=== PATIENT | male | born 1995 | race Caucasian/White ===

== ENCOUNTER 2024-11-19 21:37 | Emergency (ER) | payer OTHER, SELFPAY ==
--- NOTE | ~2024-11-19 | CT_ITS ---
CLINICAL INDICATION: Right lower quadrant pain COMPARISON: None. TECHNIQUE: Multiple contiguous axial images of the abdomen and pelvis were performed following the ad ministration of with 100 mL Omnipaque-350 intravenous contrast The dose-length product (DLP) was 1675.88 mGy-cm. Automated exposure control and iterative reconstruction technique were employed. FINDINGS/OBSERVATIONS: Visualized lower thorax: The bilateral lung bases are clear. The heart is of normal size, without pericardial effusion. Small hiatal hernia is present. Liver: The liver demonstrates homogeneously decreased enhancement, consistent with fatty infiltration and is not enlarged. Gallbladder and biliary system: The gallbladder is only minimally distended, and otherwise unremarkable. Pancreas: The pancreas enhances homogeneously without ductal dilatation. Spleen: The spleen enhances homogeneously and is not enlarged. Kidneys: Mild right-sided hydroureteronephrosis extending to the right ureterovesicular junction wher e a 3 mm calculus is identified. The left kidney is unremarkable as is the left ureter. Adrenal glands: Unremarkable. Gastrointestinal tract: Fecal stasis within the colon. Appendix: The air-filled appendix is of normal caliber (axial series, images 132 through 157). Vasculature: Unremarkable. Lymph nodes: No pathologically enlarged or morphologically suspicious lymph nodes within the retroperitoneum or at the root of the mesentery. Pelvic structures: The bladder is only minimally distended, and otherwise unremarkable. The prostate gland is not enlarged. Body wall and musculoskeletal: Age advanced degenerative disease within the lumbosacral spine. IMPRESSION: Mild right-sided hydroureteronephrosis secondary to a 3 mm calculus at the right UVJ Normal appendix Reviewed, dictated and finalized at location A. IMPRESSION: Mild right-sided hydroureteronephrosis secondary to a 3 mm calculus at the righ t UVJ Normal appendix
[2024-11-19 21:58] VITALS: BP 154/86; PULSE 87; RESP 16; TEMP 36.7; O2SAT 96
[2024-11-19 23:06] LABS: Add Urine Microscopic? NO; Appearance Urine Clear (Clear); Bacteria Urine None Seen /hpf; Bilirubin Urine Negative (Negative); Blood Urine Non-Hemolyzed Trace (Negative); Color Urine Yellow (Yellow); Glucose Urine UA Negative (Negative); Ketones Urine Negative (Negative); Leukocyte Esterase Ur Negative LEU/UL (Negative); Nitrate Urine Negative (Negative); Non Pathogenic Casts 0-2; Protein Urine Negative (Negative); Specific Grav Ur 1.025 (1.001-1.035); Squamous Epithelial Cell Urine None Seen /hpf (Few); WBC Urine 0-5 /hpf (0-3)
--- NOTE | 2024-11-19 23:27 | ED.GENADULT ---
HPI - General Adult General Chief complaint: Abdominal Pain Stated complaint: abd pain Time Seen by Provider: 11/19/24 23:09 History of Present Illness HPI narrative: 29-year-old male present to the emergency department for evaluation for lower quadrant abdominal pain. Patient states he was sitting down to have a bowel movement and began having right lower quadrant abdominal pain that was so intense that caused him to have nausea vomiting. Patient denies any recent constipation. Patient states he was not actually bearing down for bowel movement and did not have a bowel movement. Patient states the pain has since improved but has not resolved. Patient does have a prior surgical history of pyloric stenosis repair as an but has no other abdominal surgical history. Related Data Allergies Allergy/AdvReac Type Severity Reaction Status Date / Time No Known Allergies Allergy Verified 11/19/24 22:01 Review of Systems Review of Systems: All systems reviewed & are unremarkable except as noted in HPI and below Exam Narrative: APPEARANCE: Well appearing, no pain, no distress, well-nourished. HEAD: normocephalic, atraumatic. EYES: PERRLA/EOMI, conjunctivae clear. NOSE: Normal no drainage EARS:TMS clear with good light reflex. THROAT: Pharynx clear, no exudate. NECK: Supple. No adenopathy, no masses. RESPIRATORY: Airway patent, respirations nonlabored. Clear to auscultation bilaterally, no rales, rhonchi, wheezing. CARDIOVASCULAR: Regular rate and rhythm without murmurs rubs or gallops. ABDOMINAL: Right lower quadrant tenderness to palpation with no Rovsing sign MUSCULOSKELETAL: Moves all extremities. Strength/ROM intact, No edema, No calf tenderness. NEURO: Alert. Cranial nerves II through XII intact. Good gait. Good coordination SKIN: Warm, dry. Normal Color Course Vital Signs Vital signs: Vital Signs Temperature 98.1 F 11/19/24 21:58 Pulse Rate 87 11/19/24 21:58 Respiratory Rate 16 11/19/24 21:58 Blood Pressure 154/86 H 11/19/24 21:58 Pulse Oximetry 96 11/19/24 21:58 Oxygen Delivery Room Air 11/19/24 21:58 Temperature 98.1 F 11/19/24 21:58 Pulse Rate 87 11/19/24 21:58 Respiratory Rate 16 11/19/24 21:58 Blood Pressure 154/86 H 11/19/24 21:58 Pulse Oximetry 96 11/19/24 21:58 Oxygen Delivery Room Air 11/19/24 21:58 Medical Decision Making [facility] Narrative Medical decision making narrative: 29-year-old male presenting to the emergency department for evaluation for right lower quadrant pain. Patient is currently afebrile with no leukocytosis and hemoglobin of 15.6. Patient has normal kidney function with no other acute abnormalities on his CMP. UA was positive for hematuria but negative for infection. CT scan does show a 3 mm right-sided ureteral calculi at the UVJ. Patient was treated with tore for additional pain control in addition to starting him on Flomax. Patient was updated the results of the workup and was encouraged close follow-up with Urology. Differential Diagnosis Differential Diagnosis: Colitis, diverticulitis, UTI, ureteral calculi, appendicitis Vital Signs Vital Signs: Vital Signs Temperature 98.1 F 11/19/24 21:58 Pulse Rate 87 11/19/24 21:58 Respiratory Rate 16 11/19/24 21:58 Blood Pressure 154/86 H 11/19/24 21:58 Pulse Oximetry 96 11/19/24 21:58 Oxygen Delivery Room Air 11/19/24 21:58 Temperature 98.1 F 11/19/24 21:58 Pulse Rate 87 11/19/24 21:58 Respiratory Rate 16 11/19/24 21:58 Blood Pressure 154/86 H 11/19/24 21:58 Pulse Oximetry 96 11/19/24 21:58 Oxygen Delivery Room Air 11/19/24 21:58 Lab Data Lab results reviewed: Yes I reviewed the patient's lab results. 11/19/24 23:14 11/19/24 23:14 Labs: Lab Results 11/19/24 11/19/24 Range/Units 22:53 23:14 WBC 9.6 (4.5-10.0) K/mm3 RBC 5.27 (4.6-6.20) M/mm3 Hgb 15.6 (14.0-18.0) g/dL Hct 45.6 (42.0-52.0) % MCV 86.5 (80-100) fl MCH 29.6 (26-34) pg MCHC 34.2 (32-36) g/dl RDW 12.7 (11.5-14.5) % Plt Count 130 L (150-375) k/mm3 MPV 11.8 H (7.4-10.4) fl Immature Gran % (Auto) 0.5 (0-0.5) % Neut % (Auto) 73.5 H (45.5-73.1) % Lymph % (Auto) 15.8 L (18.3-44.2) % [place] % (Auto) 9.0 H (2.6-8.5) % Eos % (Auto) 0.7 (0-4.4) % Baso % (Auto) 0.5 (0.2-1.2) % Lymph # (Auto) 1.52 (0.9-3.2) K/mm3 [place] # (Auto) 0.9 H (0.1-0.6) K/mm3 Eos # (Auto) 0.1 (0-0.3) K/mm3 Baso # (Auto) 0.1 (0.0-0.1) K/mm3 Abs Immat Gran (auto) 0.05 H (0.00-0.031) K/mm3 Absolute Neuts (auto) 7.1 H (1.3-6.7) K/mm3 Absolute Nucleated RBC 0.000 (0.0-0.012) K/mm3 Nucleated RBC % 0.0 (0.0-0.2) % % Immature Plt Fraction 8.1 (0.9-11.2) % Sodium 140 (137-145) mmol/L Potassium 4.2 (3.4-5.0) mmol/L Chloride 103 (98-107) mmol/L Carbon Dioxide 29 (22-30) mmol/L Anion Gap 8 (4-12) mmol/L BUN 24 H (9-20) mg/dL Creatinine 0.99 (0.7-1.3) mg/dL Estim Creat Clear Calc 135 ml/min Estimated GFR > 60 (59 - ) Glucose 204 H (65-110) mg/dL Calcium 9.8 (8.4-10.2) mg/dL Total Bilirubin 1.0 (0.2-1.3) mg/dL AST 55 (17-59) U/L ALT 101 H (6-50) U/L Alkaline Phosphatase 56 (38-126) U/L Total Protein 7.6 (6.3-8.2) g/dL Albumin 4.6 (3.5-5.1) g/dL Lipase 101 (23-300) U/L Urine Color Yellow (Yellow) Urine Appearance Clear (Clear) Urine pH 7.0 (5.0-9.0) Ur Specific [place] 1.025 (1.001-1.035) Urine Protein Negative (Negative) mg/dL Urine Glucose (UA) Negative (Negative) mg/dL Urine Ketones Negative (Negative) mg/dL Ur Blood (Man) Non-hemolyzed trace (Negative) Urine Nitrate Negative (Negative) Urine Bilirubin Negative (Negative) Urine Urobilinogen 1.0 (<2.0) mg/dL Leukocyte Esterase Rfl Negative (Negative) PETE/UL Urine RBC 6-10 H (0-2) /hpf Urine WBC 0-5 (0-3) /hpf Ur Squamous Epith Cells None seen (Few) /hpf Urine Bacteria None seen /hpf Urine Casts 0-2 Imaging Data Radiologist's impression: Impressions Abdomen/Pelvis CT 11/20/24 00:13 IMPRESSION: Mild right-sided hydroureteronephrosis secondary to a 3 mm calculus at the right UVJ Normal appendix Discharge Plan Discharge Clinical Impression: Calculi, ureter Patient Disposition: Home Condition: Stable Instructions: Antibiotic Form, Kidney Stones (ED), How to Strain Your Urine (ED) Additional Instructions: Drink plenty of fluids. Decrease your energy drink, coffee or tea consumption. Ibuprofen for pain control. Ram[place] as needed for additional pain control. Flomax to help you pass the stone. Zofran as needed for nausea control. Have close follow-up with Urology. Strain your urine as instructed. If you have any worsening symptoms then please call or return to the emergency department. Patient Language: Spanish Prescriptions: New hydrocodone-acetaminophen 5-325 mg tablet 1 tablet PO Q12H PRN (Reason: pain) Qty: 14 0RF ondansetron 4 mg tablet,disintegrating 4 mg PO Q8H PRN (Reason: nausea and vomiting) Qty: 14 0RF tamsulosin [Flomax] 0.4 mg capsule 0.4 mg PO DAILY 14 Days Qty: 14 0RF Follow-up/Referrals: Nathanael Marcelino MD [Physician] - UNKNOWN,DOCTOR [Non-Staff] -
[2024-11-19 23:40] LABS: Alanine Aminotransferase 101 U/L (6-50); Albumin Level 4.6 g/dL (3.5-5.1); Alkaline Phosphatase 56 U/L (38-126); Anion Gap 8 mmol/L (4-12); Aspartate Amino Transferase 55 U/L (17-59); Blood Urea Nitrogen 24 mg/dL (9-20); Calcium 9.8 mg/dL (8.4-10.2); Carbon Dioxide 29 mmol/L (22-30); Chloride 103 mmol/L (98-107); Estimated CRCL calculation 135 ml/min; Estimated Glomerular Filt Rate > 60; Glucose 204 mg/dL (65-110); Lipase 101 U/L (23-300); Potassium 4.2 mmol/L (3.4-5.0); Sodium 140 mmol/L (137-145); Total Protein 7.6 g/dL (6.3-8.2)
[2024-11-19 23:42] LABS: Basophils Absolute Auto 0.1 K/mm3 (0.0-0.1); Basophils Percent Auto 0.5 % (0.2-1.2); Eosinophils Absolute Auto 0.1 K/mm3 (0-0.3); Eosinophils Percent Auto 0.7 % (0-4.4); Hematocrit 45.6 % (42.0-52.0); Hemoglobin 15.6 g/dL (14.0-18.0); Immature Granulocyte Absolute 0.05 K/mm3 (0.00-0.031); Immature Granulocyte Percent A 0.5 % (0-0.5); Immature Platelet Fraction Pct 8.1 % (0.9-11.2); Lymphocytes Absolute Auto 1.52 K/mm3 (0.9-3.2); Lymphocytes Percent Auto 15.8 % (18.3-44.2); Mean Corpuscular HGB Conc 34.2 g/dl (32-36); Mean Corpuscular Hemoglobin 29.6 pg (26-34); Mean Corpuscular Volume 86.5 fl (80-100); Mean Platelet Volume 11.8 fl (7.4-10.4); Monocytes Absolute Auto 0.9 K/mm3 (0.1-0.6); Neutrophils Absolute Auto 7.1 K/mm3 (1.3-6.7); Neutrophils Percent Auto 73.5 % (45.5-73.1); Platelet Count Result 130 k/mm3 (150-375); Red Blood Count 5.27 M/mm3 (4.6-6.20); Red Cell Distribution Width 12.7 % (11.5-14.5); White Blood Count 9.6 K/mm3 (4.5-10.0)
[2024-11-20] MEDS: TAMSULOSIN HCL 0.4 MG CAPSULE PO (00:36)
[2024-11-20] MEDS: KETOROLAC 15 MG/ML VIAL (*BKC) IV PUSH (00:36)
== END 2024-11-20 01:04 | disposition home or self-care (01) ==
PROVIDERS: Emergency Provider Emergency Medicine; PCP Student in an Organized Health Care Education/Training Program
DX: N13.2 Hydronephrosis with renal and ureteral calculous obstruction (principal)
CPT/HCPCS: 36415; 74177; 80053; 81003; 83690; 85025; 85055; 96374; 99284; A9270; J1885; Q9967